=== PATIENT | female | born 2000 | race Caucasian/White ===

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

== ENCOUNTER 2022-02-07 18:42 | Emergency (ER) | payer OTHER, SELFPAY ==
--- NOTE | 2022-02-07 18:45 | RT.EKG_ITS ---
APPROVED REPORT Exam: Resting ECG Reason for Exam: chest tightness Patient Location: E HR:94 bpm ECG Measurements Heart Rate 94 AXIS IL 154 P 67 QRSd 80 QRS 31 QT 349 T 23 QTc 438 Conclusion Sinus rhythm...normal P axis, V-rate 60- 99
[2022-02-07 18:48] VITALS: BP 119/84; PULSE 96; RESP 20; TEMP 37.5; O2SAT 99
--- NOTE | 2022-02-07 19:27 | ED.GENADUL_ITS ---
Discharge Plan Disposition Patient Disposition: Home Condition: Stable Discharge Details Clinical Impression: Medication side effect [facility] Home Meds and New Rx's Prescriptions: Continued norethindrone ac-eth estradiol [03/26 (21)] 1-20 mg-mcg tablet 1 tab PO DAILY Held dextroamphetamine-amphetamine 15 mg tablet 15 mg PO BID Hold Instructions: Resume on 02/08/22. Label Comments: TAKE 1 TABLET BY MOUTH TWICE A DAY FOR 30 DAYS escitalopram oxalate 10 mg tablet 10 mg PO DAILY Hold Instructions: Resume on 02/08/22. Label Comments: TAKE 1 TABLET BY MOUTH EVERY DAY FOR 90 DAYS Discharge Instructions Instructions: Lorazepam (By mouth) Additional Instructions: Please hold Adderall and Lexapro dosing today. Please take Ativan as prescribed tonight. Please call and speak with your mental health specialist tomorrow and discuss ongoing dosing of your Lexapro and Adderall. Dosing adjustment may be recommended. Please contact your primary care physician to arrange follow-up. Return to the ER immediately for any worsening or new concerning symptoms. Medical Decision Making 21yo female with history of ADHD and anxiety depression treated with Adderall and Lexapro at stable dosing, here with difficulty sleeping over the past 1 day and feeling wired like she took too much Adderall. She notes she is been taking as prescribed. She did not take any Adderall or Lexapro today. Patient has no clonus or tremor. She does have some hyperreflexia which she states is chronic. No hyperthermia. I think serotonin syndrome is unlikely. I will have the patient hold her Adderall and Lexapro today and tomorrow and discuss ongoing dosing with her prescriber. I will give single dose of Ativan t o help her with rest tonight. She was encouraged to return immediately for any worsening or new concerning symptoms. Sign Out No HPI General Mode of arrival: ambulatory . Date/Time Provider Initiated Documentation: 02/07/22 19:26 . Limitations to Documentation: no limitations . Information obtained by: patient . HPI Narrative: 21yo female with history of ADHD and anxiety depression treated with Adderall and Lexapro at stable dosing, here with difficulty sleeping over the past 1 day and feeling wired like she took too much Adderall. She did not sleep last night. Symptoms are moderate with no modifiers. She does note that after taking her Adderall yesterday it seemed as though it was fizzing in her mouth which is atypical. She did not take any Adderall or Lexapro today. Related Data Home Medications Medication Instructions Recorded Confirmed dextroamphetamine-amphetamine 15 15 mg PO BID 10/29/21 mg tablet escitalopram oxalate 10 mg tablet 10 mg PO DAILY 10/29/21 norethindrone acetate 1 mg-ethinyl 1 tab PO DAILY 10/29/21 estradiol 20 mcg tablet (June) Allergies Allergy/AdvReac Type Severity Reaction Status Date / Time amoxicillin Allergy Unknown Unverified 10/29/21 13:00 neomycin Allergy Hives Unverified 10/29/21 13:00 General Stated Complaint: GenMedical SONYA: 4 Review of Systems All systems reviewed & are unremarkable except as noted in HPI and below Constitutional Constitutional: Denies fever(s) Gastrointestinal Gastrointestinal: Denies vomiting Neurologic Neurologic: Denies tremor(s) PFSH All Active Problems Medication side effect (Acute) Social History Smoking/Tobacco Use Status: Never Smoking risk assessment performed?: Yes Alcohol Intake: current Alcohol Intake frequency: a few times a month Alcohol type: wine Drug use: Never Substance use type: does not use Do you feel safe at home: Yes Do you feel safe in your relationship?: Yes Exam Const General: cooperative and no acute distress HENMT Mouth: moist mucous membranes Throat: posterior oropharynx normal Eyes Alignment and Position: alignment normal Conjunctivae: normal conjunctivae Sclera: normal sclerae Pupils: PERRL EOM: EOM intact bilaterally Neck Neck: trachea midline and supple Resp Auscultation: clear to auscultation bilaterally, no rales, no rhonchi and no wheezes Cardio Rate: regular rate and not tachycardic Rhythm: regular rhythm GI Palpation: soft, not firm, no guarding, no masses, not rigid and nontender Skin General skin exam: no rashes or lesions noted Neuro General: patient alert, patient awake and tone normal Extrem General: no edema Psych Appearance: grossly normal Mental Status: mental status grossly normal Speech and Movement: speech and movement normal Course Vital Signs Vital signs: Vital Signs Temperature 37.5 C 02/07/22 18:48 Pulse 96 H 02/07/22 18:48 Respiratory Rate 20 02/07/22 18:48 Blood Pressure 119/84 02/07/22 18:48 Pulse Oximetry 99 02/07/22 18:48 Temperature 37.5 C 02/07/22 18:48 Temperature Source Skin 02/07/22 18:48 Pulse 96 H 02/07/22 18:48 Respiratory Rate 20 02/07/22 18:48 Respiratory Effort 02/07/22 19:09 Respiratory Depth Normal 02/07/22 19:09 Respiratory Pattern Normal 02/07/22 19:09 Blood Pressure 119/84 02/07/22 18:48 Blood Pressure Position Sitting 02/07/22 18:48 Pulse Oximetry 99 02/07/22 18:48 Oxygen Delivery Method Room Air 02/07/22 18:48 Oxygen Flow Rate 0 02/07/22 18:48
[2022-02-07] MEDS: LORazepam 1 MG TAB PO (19:35)
== END 2022-02-07 19:45 | disposition home or self-care (01) ==
PROVIDERS: Emergency Provider Student in an Organized Health Care Education/Training Program
DX: G47.09 Other insomnia (principal); T43.625A Adverse effect of amphetamines, initial encounter
CPT/HCPCS: 93005; 99283; 93010

== ENCOUNTER 2022-02-09 14:04 | Emergency (ER) | payer OTHER, SELFPAY ==
[2022-02-09 14:09] VITALS: BP 124/68; PULSE 105; RESP 16; TEMP 37; O2SAT 99
--- NOTE | 2022-02-09 14:15 | RT.EKG_ITS ---
APPROVED REPORT Exam: Resting ECG Reason for Exam: dizziness Patient Location: E HR:94 bpm ECG Measurements Heart Rate 94 AXIS MT 153 P 74 QRSd 83 QRS 39 QT 325 T 28 QTc 406 Conclusion Sinus rhythm...normal P axis, V-rate 60- 99
--- NOTE | 2022-02-09 14:43 | ED.GENADUL_ITS ---
Discharge Plan Disposition Patient Disposition: Home Condition: Stable Discharge Details Clinical Impression: Body aches, Influenza Primary Care Provider: Kiesha,[facility] ED Provider: Damon Wesley Home Meds and New Rx's Prescriptions: Continued norethindrone ac-eth estradiol [03/26 (21)] 1-20 mg-mcg tablet 1 tab PO DAILY Held dextroamphetamine-amphetamine 15 mg tablet 15 mg PO BID Hold Instructions: Resume on 02/16/22. until she follows up with her provider Label Comments: TAKE 1 TABLET BY MOUTH TWICE A DAY FOR 30 DAYS escitalopram oxalate 10 mg tablet 10 mg PO DAILY Hold Instructions: Resume on 02/17/22. until she sees her provider Label Comments: TAKE 1 TABLET BY MOUTH EVERY DAY FOR 90 DAYS Discharge Instructions Instructions: Influenza (ED) Additional Instructions: you tested positive for the flu follow up with your provider and discuss if you should continue adderall and escitalopram if you feel more ill, have severe worsening pain, difficulty breathing or persistent vomiting return to the emergency department Medical Decision Making 21 yo female with hx of adhd who states she took her dose of adderall on tuesday and shortly after started to feel off, had feeling as though she was crawling out of her skin and was seen on 02/07, given ativan and discharged. She states she has continued to have headaches, body aches, muscle spasms, feels like the room is spinning and when she swallows she has mild anterior chest pain. She denies fevers, chills. She states her head pain is mild and did not start suddenly or severely. She arrives stable but does seem anxious. She has clear speech, eomi, perrl, cnii-xii intact, no focal motor or sensation deficits, normal gait. She has a soft nontender abdomen. Clear lung sounds, no murmurs, no leg swelling or calf tenderness, no neck stiffness, no meningismus. Unclear etiology for her multitude of symptoms, will obtain cbc, cmp, mag level along with fluvid and reassess. Her history and physical make etiologies such as subarachnoid hemorrhage or chief ii dispatcher infection labs unremarkable other than positive for flu, she feels significantly better requesting d/c, still no meningismus and headache resolved. She is stable for d/c, advised to f/u with pcp and return precautions given Differential Diagnosis Differential Diagnosis: electrolyte abnormality, chest pain Medical Records Medical records reviewed: Yes I reviewed the patient's medical records. Imaging Data Radiologic Study: Attestation: I personally reviewed and interpreted this imaging study as follows: Imaging: X-Ray My impression: no acute findings Lab Data Lab results reviewed: Yes I reviewed the patient's lab results. ECG Data Attestation: I personally reviewed and interpreted this ECG (s) as follows: Prior ECG tracings: available for review Interpretation: sinus rhythm, rate of 94, no acute st t wave ischemic findings Sign Out No HPI General Mode of arrival: ambulatory . Date/Time Provider Initiated Documentation: 02/09/22 14:06 . Limitations to Documentation: no limitations . Information obtained by: patient . History of Present Illness 21 year old F presents to the emergency department with the chief complaint of dizziness, described as moderate, Patient started experiencing this day(s) (4) and it has been constant. No relieving factors improve symptom(s), No exacerbating factors reported . Patient notes denies fever/chills. Patient did receive the following treatments prior to arrival, none Related Data Home Medications Medication Instructions Recorded Confirmed dextroamphetamine-amphetamine 15 15 mg PO BID 10/29/21 02/09/22 mg tablet escitalopram oxalate 10 mg tablet 10 mg PO DAILY 10/29/21 02/09/22 norethindrone acetate 1 mg-ethinyl 1 tab PO DAILY 10/29/21 02/09/22 estradiol 20 mcg tablet (Junel) Allergies Allergy/AdvReac Type Severity Reaction Status Date / Time amoxicillin Allergy Unknown Unverified 02/09/22 14:12 neomycin Allergy Hives Unverified 02/09/22 14:12 General Stated Complaint: Headache SONYA: 3 PFSH All Active Problems (Updated 02/09/22 @ 16:25 by Damon Wesley MD) Medication side effect (Acute) Body aches (Acute) Influenza (Acute) Social History Smoking/Tobacco Use Status: Never Smoking risk assessment performed?: Yes Alcohol Intake: current Alcohol Intake frequency: a few times a month Alcohol type: wine Drug use: Never Substance use type: does not use Do you feel safe at home: Yes Do you feel safe in your relationship?: Yes Exam Const General: no acute distress and anxious Orientation: alert HENIL Head: normal to inspection Ears: external ears normal General nose exam: external nose normal Mouth: moist mucous membranes Eyes General: appearance normal, both eyes and all related structures Neck Neck: normal visual inspection Resp Effort & Inspection: normal respiratory effort and able to speak in complete sentences Cardio Rate: regular rate GI Palpation: soft and nontender Skin General skin exam: no rashes or lesions noted Neuro General: patient alert and patient oriented x3 Extrem General: normal to inspection Psych Mental Status: mental status grossly normal Course Vital Signs Vital signs: Vital Signs Temperature 37.0 C 02/09/22 14:09 Pulse 105 H 02/09/22 14:09 Respiratory Rate 16 02/09/22 14:09 Blood Pressure 124/68 02/09/22 14:09 Pulse Oximetry 99 02/09/22 14:09 Temperature 37.0 C 02/09/22 14:09 Temperature Source Temporal Artery Scan 02/09/22 14:09 Pulse 105 H 02/09/22 14:09 Respiratory Rate 16 02/09/22 14:09 Respiratory Effort Non-Labored 02/09/22 14:13 Blood Pressure 124/68 02/09/22 14:09 Blood Pressure Position Sitting 02/09/22 14:09 Pulse Oximetry 99 02/09/22 14:09 Oxygen Delivery Method Room Air 02/09/22 14:09 Oxygen Flow Rate 0 02/09/22 14:09 Pain Level 5 02/09/22 14:41 PAWSS Have you Been Recently Intoxicated or Drunk Within the Last 30 days?: No Have you Ever Experienced Previous Episodes of Alcohol Withdrawal?: No Have you ever Experienced Withdrawal Seizures?: No Have you ever Experienced Delirium Tremens(DT)s?: No Have you ever undergone Alcohol Rehabilitation Treatment (i.e, inpt ot ou tpatient treatment programs)?: No Have you ever Experienced Blackouts?: No Have you ever Combined Alcohol with other Downers within the last 90 days?: No Have you ever Combined Alcohol with any other Substance of Abuse during the last 90 days?: No Positive Blood Alcohol level on Presentation? [PCS.BAL]: No Evidence of Increased Autonomic Activity (i.e. HR>120, tremor, sweating, agitation, nausea)?: No Result: 0
--- NOTE | 2022-02-09 14:45 | DI.RAD_ITS ---
Exam(s) XR PORTABLE CHEST AP EXAM: XR PORTABLE CHEST AP CLINICAL HISTORY: chest pain TECHNIQUE: 2D digital imaging was performed of the chest. One image was obtained. An AP view was ob tained. COMPARISON: No exams were available for comparison FINDINGS: MEDIASTINUM: Normal. HEART: Normal. PULMONARY VASCULATURE: Normal. LUNGS: Clear. PLEURAL SPACE: No pleural effusion or pneumothorax. BONE:Within normal limits for the patient's age. OTHER FINDINGS:Normal. IMPRESSION: No acute pulmonary findings. DATA REPOSITORY: RADIATION DOSE DELIVERED:
[2022-02-09] MEDS: Ketorolac 15 MG/ML VIAL IVP (15:23)
[2022-02-09] MEDS: Normal Saline 1,000 ML 1000 ML IV (15:25)
[2022-02-09 15:34] LABS: Abs Immature Grans 0.02 10^3/uL (0.0-0.06); Absolute Basophil Count 0.03 10^3/uL (0.0-0.2); Absolute Eosinophil Count 0.08 10^3/uL (0.0-0.7); Absolute Lymphocyte Count 0.38 10^3/uL (1.2-3.4); Absolute Monocyte Count 0.42 10^3/uL (0.1-0.8); Absolute Neutrophil Count 5.35 10^3/uL (1.2-6.7); Basophils % 0.5; Eosinophils % 1.3; HCT 43.6 % (36.0-46.0); HGB 14.5 g/dL (11.2-15.7); Immature Grans % 0.3; Lymphocytes % 6.1; MCH 29.5 pg (27.0-33.0); MCHC 33.3 % (32.0-36.0); MCV 89 fL (80-95); MPV 9.5 fL (8.0-11.0); Monocytes % 6.7; Neutrophils % 85.1; Platelet Count 287 10^3/uL (130-400); RBC 4.91 10^6/uL (3.93-5.22); RDW-SD 39.2 fL; WBC 6.28 10^3/uL (4.4-10.8)
[2022-02-09] MEDS: Prochlorperazine 10 MG/2 ML VIAL IVP (15:42)
[2022-02-09 15:46] LABS: Lipase 90 U/L (73-393); Magnesium 2.1 mg/dL (1.8-2.4)
[2022-02-09 15:52] LABS: Bilirubin Negative (Negative); Blood Trace-intact (Negative); Clarity Clear (Clear); Glucose Negative (Negative); Ketones Negative (Negative); Leukocyte Esterase Negative (Negative); Nitrite Negative (Negative); Specific Gravity 1.015 (1.005-1.025); Urobilinogen 0.2 EU/dL (Up TO 0.2)
[2022-02-09 15:52] LABS: ALT 19 U/L (14-59); AST 20 U/L (15-37); Alkaline Phosphatase 61 U/L (46-116); Anion Gap 7.6 mmol/L (3-11); BUN 10 mg/dL (7-18); Bilirubin, Total 0.3 mg/dL (0.2-1.0); CO2 28.4 mmol/L (21.0-32.0); CREATININE 0.8 mg/dL (0.55-1.02); Calcium 9.6 mg/dL (8.5-10.1); Chloride 103 mmol/L (98-107); Estimated GFR 106.77 (mL/min/1.73m2); Glucose 112 mg/dL (74-106); Potassium 3.5 mmol/L (3.5-5.1); Sodium 139 mmol/L (136-145); Total Protein 8.1 g/dL (6.4-8.2); Troponin I < 50 ng/L (<or=60)
[2022-02-09 16:04] LABS: Bacteria Negative HPF (Negative); C & S Indicated? No; Casts Negative LPF (Negative); Crystals Negative HPF (Negative); Epithelial Cells Few HPF (Negative); Mucus Negative (Negative); RBC 0-2 HPF (0-2); WBC 0-2 HPF (0-5)
[2022-02-09 16:09] LABS: COVID-19 PCR Negative (Negative); Influenza B PCR Negative (Negative); RSV PCR Negative (Negative)
[2022-02-09 16:11] LABS: Influenza A PCR Positive (Negative)
[2022-02-09 16:57] VITALS: BP 124/68; PULSE 90; RESP 16; TEMP 37; O2SAT 99
== END 2022-02-09 17:13 | disposition home or self-care (01) ==
PROVIDERS: Emergency Provider Emergency Medicine
DX: J10.1 Influenza due to other identified influenza virus with other respiratory manifestations (principal); Z20.822 Contact with and (suspected) exposure to COVID-19
CPT/HCPCS: 80053; 81025; 83690; 87637; 93005; 96361; 96374; 96375; 99284; 71045; 81003; 81015; 83735; 84484; 85025; 93010; J0780; J1885